=== PATIENT | male | born 1985 | race Caucasian/White ===

== ENCOUNTER 2019-10-12 23:17 | Emergency (ER) | payer BC, OTHER ==
[~2019-10-12] VITALS: Ht 172.7 cm; Wt 90.9 kg
[2019-10-12] MEDS ORDERED: LIDOCAINE-MPF 1%, 5ML INFIL ONE (23:30)
[2019-10-12] MEDS ORDERED: SODIUM CHLORIDE 0.9% 1,000ML IVBOLUS ONE (23:30)
[2019-10-12] MEDS ORDERED: ONDANSETRON 2MG/ML, 2ML IVPush ONE (23:30)
[2019-10-12 23:54] LABS: BASOPHILS # (AUTO) 0.03 x10^3/uL (0-0.1); BASOPHILS % (AUTO) 1 % (0-1); EOSINOPHILS # (AUTO) 0.08 x10^3/uL (0-0.4); EOSINOPHILS % (AUTO) 2 % (1-7); LYMPHOCYTES # (AUTO) 1.91 x10^3/uL (1-3.4); LYMPHOCYTES % (AUTO) 39 % (22-44); MD NO; MEAN CORPUSCULAR HGB CONC 33.5 g/dL (33.2-36.2); MEAN CORPUSCULAR VOLUME 98.7 fL (81-97); MEAN PLATELET VOLUME 7.5 fL (7.4-10.4); MONOCYTES # (AUTO) 0.21 x10^3/uL (0.2-0.8); MONOCYTES % (AUTO) 4 % (2-9); NEUTROPHILS # (AUTO) 2.64 x10^3/uL (1.8-6.8); NEUTROPHILS % (AUTO) 54 % (42-75); PLATELET COUNT 191 x10^3/uL (130-400); RED BLOOD COUNT 4.05 x10^6/uL (4.38-5.82); RED CELL DISTRIBUTION WIDTH 13.4 % (9.4-14.8)
[2019-10-12] MEDS ORDERED: ONDANSETRON 2MG/ML, 2ML ONE (23:59)
[2019-10-13 00:06] LABS: ALBUMIN 3.6 g/dL (3.4-5.0); ANION GAP 7 mmol/L (5-15); CALCIUM 7.5 mg/dL (8.5-10.1); CHLORIDE 109 mmol/L (98-107); CREATININE 0.75 mg/dL (0.7-1.3)
[2019-10-13] MEDS ORDERED: PLEASE ENTER ALLERGIES MC SCH (00:30)
[2019-10-13] MEDS ORDERED: POTASSIUM CHLORIDE 20 MEQ TAB.ER.PRT PO ONE (00:30)
--- NOTE | 2019-10-13 00:45 | NUR ---
PT RESTING WITH EYES CLOSED. RESPONDS TO VERBAL STIMULI. MONITOR IN PLACE.
[2019-10-13] MEDS ORDERED: POTASSIUM CHLORIDE 20 MEQ TAB.ER.PRT ONE (00:55)
--- NOTE | 2019-10-13 02:13 | NUR ---
PT RESTING WITH EYES CLOSES. RESPONDS TO VERBAL STIMULI. MONITOR IN PLACE.
[2019-10-13 04:22] VITALS: BP 126/80
== END 2019-10-13 04:28 | disposition home or self-care (01) ==
LOC: ED 10-13 04:20
DX: S61.210A Laceration without foreign body of right index finger without damage to nail, initial encounter (principal); R11.10 Vomiting, unspecified; G31.2 Degeneration of nervous system due to alcohol; X58.XXXA Exposure to other specified factors, initial encounter; Y93.89 Activity, other specified; Y92.89 Other specified places as the place of occurrence of the external cause; Y99.8 Other external cause status
CPT/HCPCS: 36415; 80048; 80307; 82040; 85025; 96361; 96374; 99283; J2405; J7030